=== PATIENT | female | born 1995 ===

== ENCOUNTER 2018-08-31 08:58 | Day surgery (SDC) | payer OTHER ==
[~2018-08-31] VITALS: Ht 167.6 cm; Wt 68.9 kg
[2018-08-31] VITALS (13 sets, daily range): BP systolic 104–134; BP diastolic 56–84
--- NOTE | 2018-08-31 07:52 | Pre-Procedure Note/Attestation ---
Pre-Procedure Note/Attestation Complete Prior to Procedure Planned Procedure: left Procedure Narrative: knee arthroscopy, possible menisectomy, possible chondroplasty, painful hardware Indications for Procedure Pre-Operative Diagnosis: sp orif left tibia fracture Attestation I attest that I discussed the nature of the procedure; its benefits; risks and complications; and alternatives (and the risks and benefits of such alternatives ), prior to the procedure, with the patient (or the patient's legal teleservices representative). I attest that, if there was a reasonable possibility of needing a blood transfusion, the patient (or the patient's legal teleservices representative) was given the [facility] standardized written summary, pursuant to the Sacha Natalie Blood Safety Act ([place] Health and Safety Code # 1645, as amended). I attest that I re-evaluated the patient just prior to the surgery and that there has been no change in the patient's H&P, except as documented below: Dread Milan MD Aug 31, 2018 07:52
--- NOTE | 2018-08-31 07:53 | Operative Note - PDOC ---
Operative Note Operative Note Pre-op Diagnosis: sp orif left tibia fracture Procedure: see op report Post-op Diagnosis: same as pre-op plus Operative Findings: consistent w/pre-op dx studies Anesthesia: regional Specimen: none Complications: none Condition: stable Estimated Blood Loss: none Implant(s) used?: No Dread Milan MD Aug 31, 2018 07:53
[~2018-08-31 08:58] MED LIST: D5 1/2NS 1,000 ML IV SCH; HYDROmorphone 1mg/ml Carpuject SUBQ PRN; Norco 5mg/325mg tab ORAL PRN; Tylenol #3 tab (300mg/30mg) ORAL PRN; ceFAZolin 1gm IVPB IVPB ONE; celeBREX 200mg Cap **SURGERY PATIENTS ONLY ORAL ONE; oxyCONTIN 20mg tab ORAL ONE
[2018-08-31] MEDS ORDERED: NKM (10:02)
[2018-08-31] MEDS ORDERED: celeBREX 200mg Cap **SURGERY PATIENTS ONLY ORAL ONE (10:07)
[2018-08-31] MEDS ORDERED: oxyCONTIN 20mg tab ORAL ONE (10:07)
[2018-08-31] MEDS ORDERED: Lidocaine 1% MPF 10mg/ml 5ml ONE ×2 (12:23→12:32)
[2018-08-31] MEDS ORDERED: Midazolam 2mg/2ml Inj ONE (12:23)
[2018-08-31] MEDS ORDERED: fentaNYL 100 mcg/2 mL IV ONE (12:23)
[2018-08-31] MEDS ORDERED: Ketorolac 30mg Inj ONE ×2 (12:23→12:34)
[2018-08-31] MEDS ORDERED: Propofol 200mg/20ml IV ONE (12:23)
[2018-08-31] MEDS ORDERED: Kenalog-40 1ml Vial ONE (12:34)
[2018-08-31] MEDS ORDERED: Bupivacaine 0.5% Inj 30 ml vial INJ ONE (12:34)
[2018-08-31] MEDS ORDERED: Lidocaine 1% 10mg/ml/Epi 0.005mg/ml 30ml vial INJ ONE (12:35)
[2018-08-31] MEDS ORDERED: Bupivacaine w/Epi 0.25% 30ml Vial INJ ONE (12:35)
[2018-08-31] MEDS ORDERED: Morphine Sulfate PF 10 ML ONE (12:49)
[2018-08-31] MEDS ORDERED: Sterile Water Irrig 1000ml IRRIG ONE (13:00)
[2018-08-31] MEDS ORDERED: NS Irrig 1000ml ONE (13:00)
[2018-08-31] MEDS ORDERED: LR 1000ml ONE (13:00)
--- NOTE | 2018-08-31 13:27 | Anethesia Preoperative Eval ---
Anesthesia Pre-op PMH/ROS General Date of Evaluation: Aug 31, 2018 Time of Evaluation: 11:56 Anesthesiologist: Peace ASA Score: ASA 2 Mallampati Score Class I : Soft palate, uvula, fauces, pillars visible Class II: Soft palate, uvula, fauces visible Class III: Soft palate, base of uvula visible Class IV: Only hard plate visible Mallampati Classification: Class II Surgeon: Bjorn Diagnosis: L knee pain Surgical Procedure: L knee scope Anesthesia History: none Family History: no anesthesia problems Allergies: Coded Allergies: No Known Allergies (Unverified , 08/30/18) Medications: see eMAR Patient NPO?: Yes Past Medical History Cardiovascular: Denies: HTN, CAD, [place], valve dz, arrhythmia, other Pulmonary: Denies: asthma, COPD, ANJANA, other Gastrointestinal/Genitourinary: Denies: GERD, CRI, ESRD, other Endocrine: Denies: DM, hypothyroidism, steroids, other HEENT: Denies: cataract (L), cataract (R), glaucoma, AKIAK (L), AKIAK (R), other Hematology/Immune: Denies: anemia, DVT, bleeding disorder, other Musculoskeletal/Integumentary: Denies: OA, RA, DJD, DDD, edema, other PMH Narrative: as above PSxH Narrative: ORIF of L tibial plato0 Fx Anesthesia Pre-op Phys. Exam Physician Exam Last Vital Signs Date Time Temp Pulse Resp B/P (MAP) Pulse Ox O2 Delivery O2 Flow Rate FiO2 08/31/18 10:00 Room Air 08/31/18 09:52 97.6 54 18 104/56 100 Constitutional: NAD Neurologic: CN 2-12 intact Cardiovascular: RRR, no M/R/G Respiratory: CTA Gastrointestinal: S/NT/ND Airway Exam Mallampati Score: Class II MO: full Neck: flexible ROM: full Teeth: intact Dentures: no upper, no lower Anesthesia Pre-op A/P Labs See chart Urine Test Test 08/31/18 09:15 Urine HCG, Qualitative Negative (NEGATIVE) Studies Pre-op Studies: EKG - NSR Risk Assessment & Plan Assessment: ASA 2 Plan: GA with LMA L femoral nerve block for p/op pain control Pre-Antibiotics Drug: Ancef 1gr. Given Within 1 Hr of Incision: Yes Time Given: 13:10 Vakulenko,Omar MD Aug 31, 2018 13:27
[2018-08-31] MEDS ORDERED: LR 1000ml 1,000 ML IVLG SCH (13:28)
[2018-08-31] MEDS ORDERED: Midazolam 2mg/2ml Inj IVP PRN (13:30)
[2018-08-31] MEDS ORDERED: Metoclopramide 10mg/2ml Inj IVP PRN (13:30)
[2018-08-31] MEDS ORDERED: DiphenhydrAMINE 50mg/ml Inj IVP PRN (13:30)
[2018-08-31] MEDS ORDERED: Meperidine 50mg/ml Inj(FOR RIGORS ONLY) IV PRN (13:30)
[2018-08-31] MEDS ORDERED: Ketorolac 30mg Inj IV PRN (13:30)
[2018-08-31] MEDS ORDERED: fentaNYL 100 mcg/2 mL IV PRN (13:30)
[2018-08-31] MEDS ORDERED: NS Irrig 4000ml IRRIG ONE (13:44)
[2018-08-31] MEDS ORDERED: Acetaminophen (Non formulary) 100 ML IV ONE (14:00)
--- NOTE | 2018-08-31 14:22 | Immediate Post-Op Evaluation ---
Immediate Post-Op Evalulation Immediate Post-Op Evalulation Procedure: L knee arthroscopy, removal of retained hardwear Date of Evaluation: Aug 31, 2018 Time of Evaluation: 14:21 IV Fluids: 1100 Blood Products: none Estimated Blood Loss: min Urinary Output: none Blood Pressure Systolic: 122 Blood Pressure Diastolic: 78 Pulse Rate: 68 Respiratory Rate: 20 O2 Sat by Pulse Oximetry: 99 Temperature (Fahrenheit): 97.5 Pain Score (1-10): 1 Nausea: No Vomiting: No Complications none Patient Status: reacts, patent, none Hydration Status: adequate Omar Hand MD Aug 31, 2018 14:22
[2018-08-31] MEDS ORDERED: Norco 5mg/325mg tab ONE (15:56)
--- NOTE | 2018-08-31 16:08 | 48 Hour Post Anesthesia Eval ---
Post Anesthesia Evaluation Procedure: L knee arthroscopy, removal of retained hardwear Date of Evaluation: Aug 31, 2018 Time of Evaluation: 16:06 Blood Pressure Systolic: 134 0: 56 Pulse Rate: 82 Respiratory Rate: 20 Temperature (Fahrenheit): 97.6 O2 Sat by Pulse Oximetry: 98 Airway: patent Nausea: No Vomiting: No Pain Intensity: 3 Hydration Status: adequate Cardiopulmonary Status: stable Mental Status/LOC: patient returned to baseline Follow-up Care/Observations: n/a Post-Anesthesia Complications: none Follow-up care needed: ready to discharge Omar Hand MD Aug 31, 2018 16:08
--- NOTE | 2018-08-31 20:30 | Operative Note - Dictated ---
DATE OF OPERATION: 08/31/2018 SURGEON: Dread Milan M.D. PREOPERATIVE DIAGNOSES: 1. Status post orif tibial plateau fracture. 2. Right painful hardware. 3. Internal derangement, right knee. POSTOPERATIVE DIAGNOSES: 1. Hypertrophic fat pad/synovial tissue intercondylar notch, lateral compartment. 2. Grade 2 chondral damage lateral tibial plateau. 3. Painful hardware, left knee. 4. Keloid left knee incision. 5. Left knee diagnostic arthroscopy and synovectomy, lateral patellofemoral compartment. 6. Removal of left knee hardware, 1 plate and 6 screws, use complex closure measuring 15 cm. SURGEON: Dread Milan M.D. ANESTHESIA: General. INDICATION FOR PROCEDURE: The patient is a pleasant female, who underwent a significant injury and sustained a lateral tibial plateau fracture. She underwent open reduction fixation and subsequently healed the fracture, but still having pain along the hardware as well as along the knee with certain activities. The patient elected to undergo removal of the hardware. At the same time, left knee diagnostic arthroscopy was performed. Based on the intraoperative findings, appropriate meniscectomy, synovectomy, and chondroplasty may be indicated. DESCRIPTION OF PROCEDURE: After informed consent was obtained, the patient was brought to the operating room and placed under general anesthesia. Tourniquet was applied to the left proximal thigh. Left leg was prepped and draped in a sterile manner. Time-out was performed. The previous keloid scar was coaxed out. Medial lateral flaps were created. Once that was done, inferolateral stab incision through the knee was performed. Camera was then placed in the patellofemoral compartment. There is no significant chondrosis of the patellofemoral compartment. Medial gutter was entered free of meniscal chondral damage. There is hypertrophic fat pad synovial tissue anteriorly. Intercondylar notch was entered and the ACL was probed and noted to be intact. Medial working portal was established. Synovectomy medial compartment intercondylar notch of the lateral compartment was performed. Once that was done, he was placed in a figure four position. Lateral compartment was evaluated. There was grade 2 chondral damage in the anterior lateral tibial plateau consistent where the fracture was. This seemed like a portion of the anterior horn of lateral meniscus may be incarcerated in the fracture. At this point, the synovectomy was completed in to the lateral gutter. Once that was done, the arthrotomy site was closed with 4-0 nylon sutures. At this point, attention was turned towards the removal of the hardware. Tibial crest was identified and subperiosteal sleeve release was performed along the plate. Six screws and the plate were removed. Bone graft was placed. At this point, the anterolateral compartment was approximated with #1 Vicryl suture. Attention was then turned to the complex closure. The skin was closed using #1 Vicryl, 3-0 Vicryl, 3-0 Monocryl, and Dermabond. A compression dressing was applied. The patient was awoken and taken to recovery room with stable vital signs. ESTIMATED BLOOD LOSS: None. COMPLICATIONS: None. SPECIMENS: None. EXPLANTS: Include 1 plate 6 screws. Dread Milan M.D. DR: LOUIS JOB#: [id number] CC: CATIE
== END 2018-08-31 16:15 | disposition home or self-care (01) ==
LOC: SUR 08:58
DX: T84.84XA Pain due to internal orthopedic prosthetic devices, implants and grafts, initial encounter (principal); Y83.8 Other surgical procedures as the cause of abnormal reaction of the patient, or of later complication, without mention of misadventure at the time of the procedure; Y92.89 Other specified places as the place of occurrence of the external cause; M67.262 Synovial hypertrophy, not elsewhere classified, left lower leg; M79.4 Hypertrophy of (infrapatellar) fat pad; M23.8X2 Other internal derangements of left knee; L91.0 Hypertrophic scar
CPT/HCPCS: 20680; 29875; 81025; J0690; J1885; J2250; J2274; J2405; J2704; J3010; J3301; J3490; 94003; 94150